=== PATIENT | male | born 1950 | race Hispanic/Latino ===

== ENCOUNTER 2017-08-11 04:41 | Emergency (ER) | payer OTHER ==
[2017-08-11] MEDS ORDERED: TETANUS/DIPHTHERIA TOXOID [ADULT] 0.5 ML VIAL IM ONE (04:49)
[2017-08-11] MEDS ORDERED: OCTYL 2-CYANOACRYLATE 1 EACH TP ONE ×2 (04:49→05:25)
[2017-08-11] MEDS ORDERED: ACETAMINOPHEN-CODEINE ELIXIR 5 ML UDCUP ONE (04:59)
[2017-08-11] MEDS ORDERED: LIDOCAINE HCL 2% 20ML ONE (04:59)
[2017-08-11] MEDS ORDERED: CEFTRIAXONE SODIUM 1 GM ONE (05:48)
[2017-08-11] MEDS ORDERED: LIDOCAINE HCL-MPF 1% 2ML VIAL ONE (05:48)
== END 2017-08-11 06:10 | disposition home or self-care (01) ==
LOC: EDH 04:41
DX: S61.212A Laceration without foreign body of right middle finger without damage to nail, initial encounter (principal); S60.221A Contusion of right hand, initial encounter; I10 Essential (primary) hypertension; E11.9 Type 2 diabetes mellitus without complications; X58.XXXA Exposure to other specified factors, initial encounter; Y93.89 Activity, other specified; Y92.89 Other specified places as the place of occurrence of the external cause; Y99.8 Other external cause status
CPT/HCPCS: 12001; 29125; 73090; 73130; 90471; 90714; 96372; 99284; J0696; J3490 ×2

== ENCOUNTER 2020-09-02 03:57 | Emergency (ER) | payer OTHER ==
[~2020-09-02] VITALS: Ht 165.1 cm; Wt 86.2 kg
[2020-09-02 03:59] VITALS: BP 125/82
== END 2020-09-02 06:21 ==
LOC: EDH 03:57
DX: F10.10 Alcohol abuse, uncomplicated (principal); I10 Essential (primary) hypertension; Z85.46 Personal history of malignant neoplasm of prostate
CPT/HCPCS: 99281